=== PATIENT | male | born 1980 | race Hispanic/Latino ===

== ENCOUNTER 2024-02-06 10:36 | Emergency (ER) | payer SELFPAY ==
[~2024-02-06] VITALS: Ht 162.6 cm; Wt 82.0 kg
[2024-02-06 10:45] VITALS: BP 118/71
[2024-02-06 11:01] VITALS: BP 131/103
[2024-02-06 12:30] VITALS: BP 126/92
[2024-02-06] MEDS ORDERED: NAPROXEN500 MG PO (12:56)
== END 2024-02-06 13:25 | disposition home or self-care (01) | DRG 730 ==
LOC: ED 10:36
DX: N44.2 Benign cyst of testis (principal); F17.210 Nicotine dependence, cigarettes, uncomplicated